=== PATIENT | male | born 1965 | race Caucasian/White ===

== ENCOUNTER → 2019-11-30 | Outpatient (CLI) | payer OTHER ==
--- NOTE | 2019-11-30 11:12 | KCIC ---
2 view study of the right shoulder Clinical indications: History of artificial joint. Limited range of motion. COMPARISON: None available. FINDINGS: A reverse right glenohumeral joint arthroplasty is evident. No acute fracture or dislocation or lytic process is seen. Radiopaque loose bodies are seen within the axillary recess of the right glenohumeral joint. 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 No AC joint separation is seen. 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 No acute osseous abnormality. Electronically signed by: Benedicto Herrera MD (11/30/2019 11:09 AM) [id number]
== END ==
LOC: KCIC 10:25
PROVIDERS: ATTEND Physician Assistant
DX: M24.011 Loose body in right shoulder (principal); M19.011 Primary osteoarthritis, right shoulder; Z96.611 Presence of right artificial shoulder joint
CPT/HCPCS: 73030

== ENCOUNTER → 2020-03-20 | Outpatient (CLI) | payer OTHER ==
--- NOTE | 2020-03-20 12:54 | KCIC ---
PROCEDURE: SHOULDER 2+V RIGHT STUDY DATE: 03/20/2020 CLINICAL INDICATION / HISTORY: Reason: S/P Reverse total shoulder / Spl. Instructions: Grashey, outlet, axillary ordered. / History: . TECHNIQUE: Scapular Y, axillary and Grashey views of the right shoulder were obtained. COMPARISON: 11/30/2019 right shoulder x-rays FINDINGS: Right reverse total shoulder arthroplasty is redemonstrated. No fracture, dislocation or bone destruction is identified. There are mild degenerative changes at the right AC joint. No calcifications are seen in relation to the rotator cuff insertion. Ossification in the right axillary soft tissues inferior to the glenoid rim are incidentally noted and similar to prior. IMPRESSION: Right reverse humeral arthroplasty with no acute or aggressive osseous lesions shown by x-ray. Electronically signed by: Abdirashid Alas MD (03/20/2020 12:51 PM) [id number]
== END | disposition home or self-care (01) ==
LOC: KCIC 11:00
PROVIDERS: ATTEND Physician Assistant
DX: M19.011 Primary osteoarthritis, right shoulder (principal); Z96.611 Presence of right artificial shoulder joint
CPT/HCPCS: 73030

== ENCOUNTER → 2020-05-15 | Outpatient (CLI) | payer OTHER ==
--- NOTE | 2020-05-15 17:19 | KCIC ---
Five-view lumbar spine series Clinical indications: Chronic low back pain worse since last week. Pain is located on the right side. FINDINGS: Transverse processes are difficult to visualize due to underpenetration related to the patient's larger body habitus. No compression fracture or discitis or lytic process is evident. Grade 1 anterolisthesis of L4-5 is seen secondary to facet arthropathy. No spondylolysis is seen. There is mild degenerative disc space narrowing and endplate spurring at T12-L1 and L1-L2 and L3-L4. IMPRESSION: No acute compression fracture. Grade 1 anterolisthesis of L4-5. Mild degenerative lumbar spondylosis. Electronically signed by: Benedicto Herrera MD (05/15/2020 5:16 PM) [id number]
== END | disposition home or self-care (01) ==
LOC: KCIC 14:10
PROVIDERS: ATTEND Family Medicine
DX: M47.816 Spondylosis without myelopathy or radiculopathy, lumbar region (principal); M43.16 Spondylolisthesis, lumbar region; G89.29 Other chronic pain
CPT/HCPCS: 72110